=== PATIENT | male | born 2000 | race Caucasian/White ===

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

== ENCOUNTER 2021-03-01 21:10 | Emergency (ER) | payer OTHER ==
[2021-03-01] MEDS ORDERED: Sodium Chloride 0.9% 10 ML Syringe FLUSH PRN (21:40)
[2021-03-01] MEDS ORDERED: Ondansetron 4 MG/2 ML SDV IVPUSH STA (21:42)
[2021-03-01] MEDS ORDERED: Sodium Chloride 0.9% 1,000 ML IV SCH (21:45)
[2021-03-01] MEDS ORDERED: Iopamidol 755 Mg/ML 75 ML Bottle IV ONE (21:56)
[2021-03-01] MEDS ORDERED: Ketorolac 30 MG/ML SDV IVPUSH STA (23:01)
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
== END 2021-03-02 00:35 | disposition home or self-care (01) ==
LOC: FB.ED 21:10
DX: S02.2XXA Fracture of nasal bones, initial encounter for closed fracture (principal); V49.40XA Driver injured in collision with unspecified motor vehicles in traffic accident, initial encounter
CPT/HCPCS: 36415; 70450; 70486; 71260; 72125; 74177; 80053; 80307; 82150; 83690; 85025; 85610; 85730; 96374; 96375; 99284; J1885; J2405; J7030; Q9967

== ENCOUNTER 2022-07-12 18:27 | Emergency (ER) | payer OTHER ==
[2022-07-12] MEDS ORDERED: diphenhydrAMINE 50 MG/ML SDV IVPUSH ONE (20:41)
[2022-07-12] MEDS ORDERED: Lactated Ringers 1,000 ML IV ONE (20:41)
[2022-07-12] MEDS ORDERED: Ketorolac 30 MG/ML SDV IVPUSH ONE (20:41)
[2022-07-12] MEDS ORDERED: Prochlorperazine 10 MG/2 ML SDV IVPUSH ONE (20:42)
== END 2022-07-12 22:30 | disposition home or self-care (01) ==
LOC: FB.ED 18:27
DX: G43.909 Migraine, unspecified, not intractable, without status migrainosus (principal)
CPT/HCPCS: 70450; 96361; 96374; 96375; 99284; J0780; J1200; J1885; J7120